=== PATIENT | female | born 1975 | race Caucasian/White ===

== ENCOUNTER 2018-08-08 21:32 | Emergency (ER) | payer BC, MEDICAID ==
[~2018-08-08] VITALS: Ht 162.6 cm; Wt 61.2 kg
[2018-08-08 21:45] VITALS: BP_SYST 134
== END 2018-08-08 23:35 | disposition left against medical advice (07) ==
LOC: SED 21:32
DX: M25.561 Pain in right knee (principal); Z53.21 Procedure and treatment not carried out due to patient leaving prior to being seen by health care provider; V29.9XXA Motorcycle rider (driver) (passenger) injured in unspecified traffic accident, initial encounter; Y93.89 Activity, other specified; Y92.410 Unspecified street and highway as the place of occurrence of the external cause; Y99.8 Other external cause status
CPT/HCPCS: 73564; 99281

== ENCOUNTER 2020-04-20 06:43 | Emergency (ER) | payer MEDICAID, OTHER ==
[~2020-04-20] VITALS: Ht 162.6 cm; Wt 67.1 kg
[2020-04-20 06:43] VITALS: BP_SYST 187
--- NOTE | 2020-04-20 06:43 | NUR ---
Patient to ER bed 03 to gown for evaluation. Side rails up. Report given to CHAVEZ Talbert.
--- NOTE | 2020-04-20 07:10 | NUR ---
Patient presented to ER C/O foot pain. Patient A&Ox4, afebrile, arrived via wheelchair, skin pink, no swelling noted, small red spot on posterior left lower leg, pain 10/10, denies N/V/D, pt arrived crying, bilat upper eye lid swelling. Patient states she was bitten by spider yesterday, has pain "all night and not able to sleep", experiencing cramping and muscle spasms in left calf and pain to both feet.
--- NOTE | 2020-04-20 07:10 | NUR ---
Note [email or web address] in EDM - 04/20/20 at 0938 by [email or web address] Patient presented to ER C/O Patient A&Ox4, afebrile, arrived via wheelchair, skin pink, no swelling noted, small red spot on posterior left lower leg, pain 10/10, denies N/V/D, pt arrived crying, bilat upper eye lid swelling. Patient states she was bitten by spider yesterday, has pain "all night and not able to sleep", experiencing cramping and muscle spasms in left calf and pain to both feet.
--- NOTE | 2020-04-20 07:45 | NUR ---
ER Dr. FITZPATRICK at bedside examining patient.
[2020-04-20] MEDS ORDERED: KETOROLAC TROMETHAMINE 60 MG/2 ML VIAL IM ONE (08:00)
[2020-04-20] MEDS ORDERED: LORazepam 1 MG TABLET PO ONE (08:00)
[2020-04-20] MEDS ORDERED: fentaNYL CITRATE/PF 100 MCG/2 ML AMP IM ONE (08:45)
[2020-04-20 09:25] VITALS: BP_SYST 174
--- NOTE | 2020-04-20 09:25 | NUR ---
Patient given written and verbal discharge instructions and verbalizes understanding. ER MD discussed with patient the results and treatment provided. Patient in stable condition. ID arm band removed. IV catheter removed intact and dressing applied, no active bleeding. Rx of NORCO & SOMA given. Patient educated on pain management and to follow up with PMD. Pain Scale 3/10 . Opportunity for questions provided and answered. Medication side effect fact sheet provided.
== END 2020-04-20 09:25 | disposition home or self-care (01) ==
LOC: SED 06:43
DX: T63.3 Toxic effect of venom of spider (principal); I10 Essential (primary) hypertension; Z88.6 Allergy status to analgesic agent; Y92.89 Other specified places as the place of occurrence of the external cause
CPT/HCPCS: 96372; 99284; J1885; J3010